=== PATIENT | female | born 1940 ===

== ENCOUNTER 2024-03-01 06:28 | Day surgery (SDC) | payer OTHER ==
[2024-02-29 08:53] VITALS: BP 170/77
[2024-02-29 08:57] LABS: PH,URINE 5.5 (5.0-8.0); URINE APPEARANCE Clear; URINE BILIRRUBIN Negative (NEGATIVE); URINE BLOOD Negative; URINE COLOR Yellow; URINE GLUCOSE Negative (NEGATIVE); URINE KETONE Negative (NEGATIVE); URINE LEUKOCYTE Negative; URINE NITRATE Negative; URINE PROTEIN Negative (NEGATIVE); URINE UROBILINOGEN 0.2 E.U./dl
[2024-02-29 09:02] LABS: HEMATOCRIT 32.1 % (36.0-45.00); HEMOGLOBIN 10.7 g/dL (12.0-15.00); MEAN CELL VOLUME 92.7 fL (80.00-100.00); MEAN CORPUSCULAR HGB CONC 33.4 g/dl (32.0-36.0); PLATELET COUNT 238 K/uL (150-450); RED BLOOD COUNT 3.46 M/uL (4.00-6.00); RED CELL DISTRIBUTION WIDTH 14.3 % (11.5-14.5)
[2024-02-29 09:02] LABS: URINE BACTERIA 7.3 uL (0.0-1933); URINE EPITHELIAL CELLS 2.6 uL (0.0-38.8); URINE WBC 6.9 uL (0.0-23.2)
[2024-02-29 09:10] LABS: URINE CAST 0.14 uL (0.0-1.40)
[2024-02-29 09:36] LABS: ALBUMIN 3.3 gm/dL (3.4-5.0); BILIRUBIN TOTAL 0.66 mg/dL (0.3-1.2); CALCIUM 9.5 mg/dL (8.5-10.1); CHOL HDL RATIO 3.6 (0-5.0); CREATININE SERUM 2.02 mg/dL (0.55-1.02); GFR 23.64; GLOBULINA 3.3 G/DL (2.4-3.5); POTASSIUM 5.03 mEq/L (3.5-5.1); PROTHROMBIN TIME 10.9 SECONDS (9.0-11.5); TOTAL PROTEIN 6.6 gm/dL (6.4-8.2)
[~2024-03-01] VITALS: Ht 162.6 cm; Wt 69.9 kg
[~2024-03-01 06:28] MED LIST: AVAPRO300 MG PO; ENBREL50 MG/1 M2 SUBCUTANEO; MILLIPRED5 MG PO; NORVASC5 MG PO; TYLENOL ARTHRI650 MG PO
[2024-03-01] MEDS ORDERED: BUPIVACAINE HCL/MPF 0.5% 30ML VIAL ONE (13:43)
[2024-03-01] MEDS ORDERED: CEFAZOLIN SODIUM 1,000 MG VIAL ONE (13:44)
[2024-03-01] MEDS ORDERED: POVIDONE-IODINE 118 ML BOTT TOP ONE (14:37)
[2024-03-01] MEDS ORDERED: MORPHINE SULFATE 2 MG/ML CARTRIDGE IV ONE ×2 (16:15→16:45)
[2024-03-01] MEDS ORDERED: PERCOCET 5-3251 EACH PO (17:19)
== END 2024-03-01 17:55 | disposition home or self-care (01) ==
LOC: CIR.AMB 06:28
PROVIDERS: ATTEND Orthopaedic Surgery
DX: S52.531A Colles' fracture of right radius, initial encounter for closed fracture (principal); M81.0 Age-related osteoporosis without current pathological fracture; I10 Essential (primary) hypertension
CPT/HCPCS: 25609; 20902; 25101; L8699